=== PATIENT | male | born 1935 | race Caucasian/White ===

== ENCOUNTER → 2017-03-29 | Outpatient (CLI) | payer MEDICARE, BC ==
[~2017-03-29] MED LIST: ACIPHEX20 MG PO; ALDACTONE25 MG PO; DESOWEN 0.05%15 GM TOP; EYE DROPS ALLER15 ML OPHTH; FLOMAX0.4 MG PO; FLONASE 50 MCG/16 GM NOSE; LIPITOR20 M1 PO; MULTI VITAMIN1 EACH PO; OS-CAL 500+D31 EAC1 PO; TRIAMCINOLONE A15 G2 TOP; TYLENOL EXTRA500 MG PO; VITAMIN C500 M1 PO; VOLTAREN 1% GE100 GM TOP
== END | disposition disaster alternative care site (69) ==
LOC: GRAD 12:13
DX: M25.512 Pain in left shoulder (principal); M48.02 Spinal stenosis, cervical region; M47.892 Other spondylosis, cervical region

== ENCOUNTER → 2017-04-10 | Outpatient (CLI) | payer MEDICARE, BC | END | disposition disaster alternative care site (69) | LOC: GOPD 04-07 13:00 | PROC: 3E0R33Z Introduction of Anti-inflammatory into Spinal Canal, Percutaneous Approach (ICD-10-PCS; principal; 2017-04-10) | PROC: 3E0R3BZ Introduction of Anesthetic Agent into Spinal Canal, Percutaneous Approach (ICD-10-PCS; 2017-04-10) | DX: M48.02 Spinal stenosis, cervical region (principal); M47.22 Other spondylosis with radiculopathy, cervical region | CPT/HCPCS: J1040 ==